=== PATIENT | female | born 1960 ===

== ENCOUNTER 2017-09-24 17:26 | Emergency (ER) | payer MEDICAID ==
[2017-09-24 17:46] VITALS: BP 132/81; PULSE 74; RESP 16; TEMP 98.9; O2SAT 100
--- NOTE | 2017-09-24 18:05 | C.PDOC ---
History Of Present Illness 56yo female, comes to ER complaining of lateral wrist pain x 6-8 weeks. She states she lifts heavy boxes at work and continues to do so. She has been applying heat, using gels and Motrin with occasional relief of pain. She also states the "veins on wrist" seem to bulge and deflate at times and she finds this "frightening." Otherwise, she denies any weakness, numbness and offers no additional medical complaints. Time Seen by Provider: 09/24/17 17:43 Chief Complaint (Nursing): Upper Extremity Problem/Injury History Per: Patient History/Exam Limitations: no limitations Onset/Duration Of Symptoms: Persistent Current Symptoms Are (Timing): Still Present Quality: "Pain" Exacerbating Factor(s): Strenuous Use Of Affected Area Past Medical History Reviewed: Historical Data, Nursing Documentation, Vital Signs Vital Signs: Last Vital Signs Temp 98.9 F 09/24/17 17:45 Pulse 74 09/24/17 17:45 Resp 16 09/24/17 17:45 BP 132/81 09/24/17 17:45 Pulse Ox 100 09/24/17 18:13 - Medical History PMH: No Chronic Diseases Surgical History: Appendectomy - [facility] Procedures REMOV INTRALUM EAR FB (08/13/14) Family History: States: No Known Family Hx - Social History Hx Tobacco Use: Yes Hx Alcohol Use: No Hx Substance Use: No - Immunization History Hx Tetanus Toxoid Vaccination: Yes (2010) Hx Influenza Vaccination: No Hx Pneumococcal Vaccination: No (not sure) Review Of Systems Musculoskeletal: Positive for: Hand Pain (left lateral wrist pain) Neurological: Negative for: Weakness, Numbness Physical Exam - Physical Exam Appears: Non-toxic Skin: Normal Color Head: Normacephalic Eye(s): bilateral: Normal Inspection Neck: Normal ROM, Supple Chest: Symmetrical Cardiovascular: Rhythm Regular Respiratory: Normal Breath Sounds Extremity: Normal ROM (FROM of left wrist), No Tenderness, Capillary Refill (< 2 seconds), No Deformity, No Swelling, Other (distal sensations intact) Pulses: Left Radial: Normal, Right Radial: Normal Neurological/Psych: Oriented x3, Normal Motor, Normal Sensation ED Course And Treatment O2 Sat by Pulse Oximetry: 100 (RA) Pulse Ox Interpretation: Normal - Other Rad L wrist X-Ray: Interpreted by Me (neg) Medical Decision Making Medical Decision Making: refused ice/nsaids- wants something MUCH stronger (?) injury 2-3 months ago normal exam occasionally veins of the forearm will change in diameter and prominence when dependent hanging and with exercise Poor understanding and insight pt making FROM movements of L wrist, normal grasp strength and manipulating objects in ED without apparent pain. ? psych component- long h/o same. No new tx's indicated Lateral wrist pain worse with lateral wrist deviation (injury of same mechanism ) suspect DeQuervian's Tenosynovitis. Disposition Doctor Will See Patient In The: Office Counseled Patient/Family Regarding: Studies Performed, Diagnosis - Disposition Referrals: [facility] [Outside] [facility] [Outside] [facility] [Outside] [facility] [Outside] Disposition: HOME/ ROUTINE Disposition Time: 18:05 Condition: GOOD Additional Instructions: bolsa de hielo 1/2 hora por hora, nada caliente, no pone inguentos que se hace peor Usa el esguinsse issa necessario y cuando duerme ibuprofeno/Advil 400-600 mg cada 6 horas issa necessario Sigue con la [facility] issa necessario Instructions: De Quervain's Tenosynovitis, Wrist Sprain (DC) Forms: [facility] (Russian) Print Language: FRISIAN - Clinical Impression Clinical Impression: Left wrist sprain - Scribe Statement The provider has reviewed the documentation as recorded by the Scribe Magdalena Peter Provider Attestation: All medical record entries made by the Scribe were at my direction and personally dictated by me. I have reviewed the chart and agree that the record accurately reflects my personal performance of the history, physical exam, medical decision making, and the department course for this patient. I have also personally directed, reviewed, and agree with the discharge instructions and disposition.
--- NOTE | 2017-09-24 18:42 | RAD ---
Date of service: 09/24/2017 PROCEDURE: Left Wrist Radiographs. HISTORY: h/o L lateral wrist strain, normal exam now COMPARISON: None. FINDINGS: BONES: Bone alignment and mineralization are normal. There is no acute displaced fracture or bone destruction. JOINTS: Normal. No dislocation. SOFT TISSUES: Normal. OTHER FINDINGS: None. IMPRESSION: No acute fracture or dislocation.
== END 2017-09-24 18:42 | disposition home or self-care (01) ==
LOC: C.ER 17:26
DX: S63.502A Unspecified sprain of left wrist, initial encounter (principal); X50.0XXA Overexertion from strenuous movement or load, initial encounter

== ENCOUNTER 2018-05-26 17:31 | Emergency (ER) | payer MEDICAID ==
[2018-05-26 17:56] VITALS: BMI 22.6
[2018-05-26 17:58] VITALS: BP 135/72; PULSE 104; RESP 19; TEMP 98.4; O2SAT 98
--- NOTE | 2018-05-26 18:54 | C.PDOC ---
History Of Present Illness 57 year old female presents to ED with complaint of nasal congestion and headache for the past 2 days. Patient has a PMHx of chronic sinusitis and asthma. Patient reports "choking on air" last night and this morning.Patient notes that she has had previous episodes in the past and was told by the ENT specialist that have inflammation to her epiglottis. Patient reports seeing last year and was supposed to follow up with CT scan, but she lost her insurance at that same time. Patient reports seeing her PMD back in March and was given amoxicillin for the sinusitis. Patient states that she noticed improvement, but believes that she has another infection. Patient also has associated cough. 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 Patient noticed worsening pain in the past 2 days and has been taking Motrin with some relief. Patient describes the pain as intermittent, 7/10 in severity, and non-radiating. Patient denies fever, chills, nausea, vomiting, abdominal pain, and chest pain. Time Seen by Provider: 05/26/18 18:04 Chief Complaint (Nursing): ENT Problem History Per: Patient History/Exam Limitations: no limitations Onset/Duration Of Symptoms: Days (2), Intermittent Episodes Current Symptoms Are (Timing): Still Present Quality: "Pain" Past Medical History Reviewed: Historical Data, Nursing Documentation, Vital Signs Vital Signs: Last Vital Signs Temp 98.4 F 05/26/18 17:56 Pulse 104 H 05/26/18 17:56 Resp 19 05/26/18 17:56 BP 135/72 05/26/18 17:56 Pulse Ox 98 05/26/18 17:56 - Medical History PMH: Asthma Surgical History: Appendectomy - [facility] Procedures REMOV INTRALUM EAR FB (08/13/14) Family History: States: Unknown Family Hx - Social History Hx Tobacco Use: Yes Hx Alcohol Use: No Hx Substance Use: No - Immunization History Hx Tetanus Toxoid Vaccination: Yes (2010) Hx Influenza Vaccination: No Hx Pneumococcal Vaccination: No (not sure) Review Of Systems Constitutional: Negative for: Fever, Chills, Weakness ENT: Positive for: Nose Congestion Cardiovascular: Negative for: Chest Pain Respiratory: Positive for: Cough, Other (choking on air) Gastrointestinal: Negative for: Nausea, Vomiting, Abdominal Pain Musculoskeletal: Positive for: Arm Pain (right elbow pain ) Neurological: Positive for: Headache. Negative for: Weakness, Numbness, Dizzi ness Physical Exam - Physical Exam Appears: Well, Non-toxic, No Acute Distress Skin: Normal Color, Warm, Dry Head: Atraumatic, Normacephalic Eye(s): bilateral: Normal Inspection, PERRL, EOMI Ear(s): Bilateral: Normal Nose: Other (yellow-mark mucoid drainage in the right nare with bilateral turbinate hypertrophy) Oral Mucosa: Moist Throat: Normal, No Erythema, No Exudate Neck: Normal ROM, Supple Chest: Symmetrical, No Deformity Cardiovascular: Rhythm Regular, No Murmur Respiratory: No Accessory Muscle Use, No Rales, No Rhonchi, No Wheezing Gastrointestinal/Abdominal: Soft, No Tenderness Extremity: Tenderness (pinpoint tenderness medially to the right elbow), Capillary Refill (<2 seconds) Neurological/Psych: Oriented x3, Normal Speech, Normal Cognition ED Course And Treatment O2 Sat by Pulse Oximetry: 98 (in RA) - Other Rad chest xray X-Ray: Viewed By Me, Read By Radiologist Interpretation: Accession No. : [id number]. Patient Name / ID : GUILLE STEVENSON / [id number]. Exam Date : 05/26/2018 18:47:21 ( Approved ). Study Comment : Sex / Age : F / 57Y. Creator : Vivien Tan MD. Dictator : Vivien Tan MD. Mirror Finishing Machine Operator : Technical Support Assistant : Vivien Tan MD. Approver2 : Report Date : 05/27/2018 10:06:31. My Comment : . HISTORY: sob. COMPARISON: Chest x-ray performed 09/05/16. TECHNIQUE: Chest PA and lateral. FINDINGS: LUNGS: Biapical pleural thickening, right greater than left. Patchy infiltrate suspected in the right lung apex. Hyperinflation may be seen in the setting of COPD. Please note that chest x-ray has limited sensitivity for the detection of pulmonary masses. PLEURA: No significant pleural effusion identified. No definite pneumothorax . CARDIOVASCULAR: Heart size appears within normal limits. Dense atherosclerotic calcifications of the aorta. OSSEOUS STRUCTURES: No acute osseous abnormality identified. VISUALIZED UPPER ABDOMEN: Unremarkable. OTHER FINDINGS: None. IMPRESSION: Biapical pleural thickening, right greater than left. Patchy infiltrate suspected in the right lung apex. Hyperinflation may be seen in the setting of COPD. right elbow X-Ray: Viewed By Me, Read By Radiologist Interpretation: Accession No. : [id number]. Patient Name / ID : GUILLE STEVENSON / [id number]. Exam Date : 05/26/2018 18:48:01 ( Approved ). Study Comment : Sex / Age : F / 57Y. Creator : Vivien Tan MD. Dictator : Vivien Tan MD. Mirror Finishing Machine Operator : Technical Support Assistant : Vivien Tan MD. Approver2 : Report Date : 05/27/2018 12:43:57. My Comment : . PROCEDURE: Radiographs of the right elbow. Three views. HISTORY: pain. COMPARISON: No prior. FINDINGS: BONES: No acute displaced fracture. JOINTS: No dislocation. SOFT TISSUES: Unremarkable. No evidence of radiopaque foreign body. JOINT EFFUSION: No significant joint effusion. OTHER FINDINGS: None. IMPRESSION: No acute displaced fracture, dislocation, or significant joint effusion identified. If symptoms persist, or if there is continued clinical concern, x-ray follow-up in 7-10 days should be considered. Medical Decision Making Medical Decision Making: Plan:Sudafed PO CXR- Biapical pleural thickening, right greater than left. Patchy infiltrate suspected in the right lung apex. Hyperinflation may be seen in the setting of COPD Right elbow x-ray- unremarkable patient started on Keflex, Pred, Sudafed, Flonase, and Albuterol patient advised to follow up with PMD if symptoms persist patient advised to follow up with ENT for laryngoscopy patient verbalized understanding and is in agreement with plan patient is stable for discharge Disposition Counseled Patient/Family Regarding: Studies Performed, Diagnosis, Need For Followup, Rx Given - Disposition Referrals: [facility] [Outside] Disposition: HOME/ ROUTINE Disposition Time: 19:20 Condition: STABLE Additional Instructions: Use medications as instructed for Acute sinusitis and Elbow pain Follow up with ENT in 1-2 days Follow up with Ortho in 1-2 days Rest and Hydration Return to ED if symptoms worsens Prescriptions: Albuterol HFA [Ventolin HFA 90 mcg/actuation (8 g)] 2 puff IH [id number] PRN #1 inhaler PRN Reason: Shortness Of Breath Benzonatate [Tessalon Perles] 100 mg PO TID #30 sgl Cephalexin [cephalexin] 500 mg PO Q12 #14 cap Fluticasone Propionate [Flonase] 1 spr NS BID #1 bottle Ibuprofen [Motrin] 600 mg PO Q8 #30 tab predniSONE [predniSONE Tab] 60 mg PO DAILY #15 tab Pseudoephedrine HCl [Sudafed] 60 mg PO BID #30 tablet Sod Chlor,Bicarb/Squeez Bottle [[place] Saline Nasal Rinse Kit] 1 each NS DAILY #1 pack.w.dev Instructions: Sinusitis, Adult (DC), Sinus Headache (DC), Elbow Sprain (DC) Forms: [facility] (Syriac) - Clinical Impression Clinical Impression: Sinusitis, acute, Elbow pain, right - PA / CELL EFFICIENCY SUPERVISOR / Resident Statement MD/DO has reviewed & agrees with the documentation as recorded. (Charito Garnett) - Scribe Statement The provider has reviewed the documentation as recorded by the Scribe (Charito Garnett) All medical record entries made by the Scribe were at my direction and personally dictated by me. I have reviewed the chart and agree that the record accurately reflects my personal performance of the history, physical exam, medical decision making, and the department course for this patient. I have also personally directed, reviewed, and agree with the discharge instructions and disposition.
--- NOTE | 2018-05-26 19:09 | C.PDOC ---
Time Seen by Provider: 05/26/18 18:04 Chief Complaint (Nursing): ENT Problem Past Medical History Vital Signs: Last Vital Signs Temp 98.4 F 05/26/18 17:56 Pulse 104 H 05/26/18 17:56 Resp 19 05/26/18 17:56 BP 135/72 05/26/18 17:56 Pulse Ox 98 05/26/18 17:56 - Medical History PMH: Asthma Surgical History: Appendectomy - [facility] Procedures REMOV INTRALUM EAR FB (08/13/14) - Social History Hx Tobacco Use: Yes Hx Alcohol Use: No Hx Substance Use: No - Immunization History Hx Tetanus Toxoid Vaccination: Yes (2010) Hx Influenza Vaccination: No Hx Pneumococcal Vaccination: No (not sure) ED Course And Treatment O2 Sat by Pulse Oximetry: 98 Disposition Counseled Patient/Family Regarding: Studies Performed, Diagnosis, Need For Followup, Rx Given - Disposition Referrals: [facility] [Outside] Disposition: HOME/ ROUTINE Disposition Time: 19:14 Condition: STABLE Additional Instructions: Use medications as instructed for Acute sinusitis and Elbow pain Follow up with ENT in 1-2 days Follow up with Ortho in 1-2 days Rest and Hydration Return to ED if symptoms worsens Prescriptions: Albuterol HFA [Ventolin HFA 90 mcg/actuation (8 g)] 2 puff IH [id number] PRN #1 inhaler PRN Reason: Shortness Of Breath Benzonatate [Tessalon Perles] 100 mg PO TID #30 sgl Cephalexin [cephalexin] 500 mg PO Q12 #14 cap Fluticasone Propionate [Flonase] 1 spr NS BID #1 bottle Ibuprofen [Motrin] 600 mg PO Q8 #30 tab predniSONE [predniSONE Tab] 60 mg PO DAILY #15 tab Pseudoephedrine HCl [Sudafed] 60 mg PO BID #30 tablet Sod Chlor,Bicarb/Squeez Bottle [[place] Saline Nasal Rinse Kit] 1 each NS DAILY #1 pack.w.dev Instructions: Sinus Headache (DC), Sinusitis, Adult (DC), Elbow Sprain (DC) - Clinical Impression Clinical Impression: Sinusitis, acute, Elbow pain, right
--- NOTE | 2018-05-27 10:10 | RAD ---
HISTORY: sob COMPARISON: Chest x-ray performed 09/05/16 TECHNIQUE: Chest PA and lateral FINDINGS: LUNGS: Biapical pleural thickening, right greater than left. Patchy infiltrate suspected in the right lung apex. Hyperinflation may be seen in the setting of COPD. Please note that chest x-ray has limited sensitivity for the detection of pulmonary masses. PLEURA: No significant pleural effusion identified. No definite pneumothorax . CARDIOVASCULAR: Heart size appears within normal limits. Dense atherosclerotic calcifications of the aorta. OSSEOUS STRUCTURES: No acute osseous abnormality identified. VISUALIZED UPPER ABDOMEN: Unremarkable. OTHER FINDINGS: None. IMPRESSION: Biapical pleural thickening, right greater than left. Patchy infiltrate suspected in the right lung apex. Hyperinflation may be seen in the setting of COPD.
--- NOTE | 2018-05-27 12:47 | RAD ---
PROCEDURE: Radiographs of the right elbow. Three views. HISTORY: pain COMPARISON: No prior. FINDINGS: BONES: No acute displaced fracture. JOINTS: No dislocation. SOFT TISSUES: Unremarkable. No evidence of radiopaque foreign body. JOINT EFFUSION: No significant joint effusion. OTHER FINDINGS: None IMPRESSION: No acute displaced fracture, dislocation, or significant joint effusion identified. If symptoms persist, or if there is continued clinical concern, x-ray follow-up in 7-10 days should be considered.
== END 2018-05-26 19:59 | disposition home or self-care (01) ==
LOC: C.ER 17:31
DX: J32.9 Chronic sinusitis, unspecified (principal); M25.521 Pain in right elbow